=== PATIENT | male | born 1970 | race Caucasian/White ===

== ENCOUNTER 2019-10-01 19:05 | Emergency (ER) | payer SELFPAY ==
[~2019-10-01] VITALS: Ht 182.9 cm; Wt 82.1 kg
[2019-10-01 19:10] VITALS: BP_SYST 115
--- NOTE | 2019-10-01 19:10 | NUR ---
Patient triaged and placed in waiting room. VSS and patient appears in no acute distress at this time. Accompanied by self, awaiting available bed, and MD notified of need for MSE.
--- NOTE | 2019-10-01 21:30 | NUR ---
call pt name in the wr.no answer.
--- NOTE | 2019-10-01 21:35 | NUR ---
call pt name in the wr.no answer.
--- NOTE | 2019-10-01 21:40 | NUR ---
call pt name in the wr.no answer.
== END 2019-10-01 21:40 | disposition left against medical advice (07) ==
LOC: SED 19:05
DX: M79.89 Other specified soft tissue disorders (principal); Z53.21 Procedure and treatment not carried out due to patient leaving prior to being seen by health care provider